=== PATIENT | male | born 1975 | race Caucasian/White ===

== ENCOUNTER 2019-12-17 12:49 | Day surgery (SDC) | payer OTHER ==
[~2019-12-17] VITALS: Ht 154.9 cm; Wt 67.1 kg
[~2019-12-17 12:49] MED LIST: BUPIVACAINE/PF 0.5% ONE; EPINEPHRINE 1 MG/ML, 1ML ONE; GLIM4TAB PO; LISI-167 PO; METF10002 PO; PRAV10TA2 PO
[2019-12-17] MEDS ORDERED: LACTATED RINGERS 1,000 ML IV SCH (13:15)
[2019-12-17 13:16] VITALS: BP 105/70
[2019-12-17] MEDS ORDERED: OXYCODONE (13:21)
[2019-12-17] MEDS ORDERED: MIDAZOLAM 1 MG/ML, 2ML ONE (13:37)
[2019-12-17] MEDS ORDERED: FENTANYL PF 250 MCG/5ML ONE (13:37)
[2019-12-17] MEDS ORDERED: OXYC-302 PO (13:39)
[2019-12-17] MEDS ORDERED: INSU100V8 SQ (13:39)
[2019-12-17 13:49] LABS: ALBUMIN 3.7 g/dL (3.4-5.0); ANION GAP 8 mmol/L (5-15); CHLORIDE 104 mmol/L (98-107)
[2019-12-17 13:53] LABS: ALANINE AMINOTRANSFERASE 19 U/L (12-78); ALKALINE PHOSPHATASE 136 U/L (45-117); BILIRUBIN,TOTAL 1.2 mg/dL (0.2-1.0); CREATININE 0.84 mg/dL (0.7-1.3); TOTAL PROTEIN 8.1 g/dL (6.4-8.2)
[2019-12-17] MEDS ORDERED: DEXAMETHASONE 4 MG/ML, 1ML ONE (14:09)
[2019-12-17] MEDS ORDERED: CEFAZOLIN 1,000 MG ONE (14:14)
[2019-12-17] MEDS ORDERED: PROPOFOL 10 MG/ML, 20ML ONE (14:20)
[2019-12-17] MEDS ORDERED: EPHEDRINE 50 MG/ML, 1ML ONE (14:20)
[2019-12-17] MEDS ORDERED: LABETALOL 5MG/ML, 20ML IV PRN (14:30)
[2019-12-17] MEDS ORDERED: FENTANYL PF 100 MCG/2ML IV PRN (14:30)
[2019-12-17] MEDS ORDERED: ACETAMINOPHEN 325 MG TABLET PO PRN (14:30)
[2019-12-17] MEDS ORDERED: DIAZEPAM 5 MG/ML, 2ML IVPush PRN (14:30)
[2019-12-17] MEDS ORDERED: ONDANSETRON 2MG/ML, 2ML IV PRN (14:30)
[2019-12-17] MEDS ORDERED: OXYcodone 5 MG/5 ML ORAL.SOL UDC PO PRN (14:30)
[2019-12-17] MEDS ORDERED: HYDROmorphone 2 MG/ML, 1ML IVPush PRN (14:30)
[2019-12-17] MEDS ORDERED: PROMETHAZINE 25 MG/ML, 1ML IV PRN (14:30)
[2019-12-17] MEDS ORDERED: MEPERIDINE/PF 25MG/ML,1ML IVPush PRN (14:30)
[2019-12-17] MEDS ORDERED: hydrALAzine 20 MG/ML, 1ML IV PRN (14:30)
[2019-12-17] MEDS ORDERED: ROCURONIUM 10MG/ML,5ML ONE (14:33)
[2019-12-17] MEDS ORDERED: ONDANSETRON 2MG/ML, 2ML ONE (14:33)
== END 2019-12-17 18:15 | disposition home or self-care (01) ==
LOC: OUT 12:49
PROVIDERS: ATTEND Orthopaedic Surgery
DX: S52.032A Displaced fracture of olecranon process with intraarticular extension of left ulna, initial encounter for closed fracture (principal); S32.432A Displaced fracture of anterior column [iliopubic] of left acetabulum, initial encounter for closed fracture; E11.9 Type 2 diabetes mellitus without complications; I10 Essential (primary) hypertension; Z79.84 Long term (current) use of oral hypoglycemic drugs; Z79.899 Other long term (current) drug therapy; W19.XXXA Unspecified fall, initial encounter; Y93.89 Activity, other specified; Y92.89 Other specified places as the place of occurrence of the external cause; Y99.0 Civilian activity done for income or pay
CPT/HCPCS: 24685; 64415; 73070; 80053; 82962; C1713; J0690; J1100; J2250; J2405; J2704; J3010; J7120; 76000; J0171